=== PATIENT | female | born 1995 | race African-American/Black ===

== ENCOUNTER 2018-08-02 18:08 | Inpatient (IN) ==
--- NOTE | 2018-08-02 18:29 | ED ---
HPI General Chief complaint: Vaginal Bleeding Stated complaint: vaginal bleeding Time Seen by Provider: 08/02/18 18:19 History of Present Illness HPI Narrative: The patient was seen and examined in the presence of the nurse. This patient complains of vaginal bleeding. She has long history of very lengthy menstrual periods that go about 3 weeks. She is currently been bleeding about 3 weeks. She has history of anemia and blood transfusion, the last was about 6 months ago. This heavy and lengthy vaginal bleeding history has been going on for years but unfortunately she is never followed up with an outpatient [employer] ELECT[employer]PERATOR. She is not having pelvic pain or fever or syncope. She has some fatigue and lack of energy and generalized weakness. Symptom severity is moderate. No alleviating factors. Symptoms exacerbated by menorrhagia. She does not think she is Related Data Allergies Allergy/AdvReac Type Severity Reaction Status Date / Time No Known Allergies Allergy Uncoded 04/17/15 09:43 Review of Systems ROS: all other systems reviewed are negative [facility] Medical History Medical History Anemia (Acute) Surgical History Surgical History No history of previous surgery (Acute) Social History Social History Substance History: No History of Abuse Second Hand Smoke Exposure: No Smoking Status: Never smoker How Often Do You Have a Drink Containing Alcohol: Monthly or less Recent Travel in [facility] within the Last 8 Weeks: No Recent Out of Country Travel within the Last 8 Weeks: No Exam Narrative Exam Narrative: GENERAL: Well-nourished, well-developed patient in no apparent distress. SKIN: Focused skin assessment reveals no rash and nodules. Skin is Warm and dry. HEAD: Atraumatic. Normocephalic. EYES: Pupils equal and round. No scleral icterus. No injection or drainage. ENT: No nasal bleeding or discharge. Mucous membranes pink and moist. NECK: Trachea midline. No JVD. CARDIOVASCULAR: Regular rate and rhythm. No murmur appreciated. RESPIRATORY: No accessory muscle use. Clear to auscultation. Breath sounds equal bilaterally. GASTROINTESTINAL: Abdomen soft, non-tender, nondistended. Hepatic and splenic margins not palpable. MUSCULOSKELETAL: No obvious deformities. No clubbing. No cyanosis. No edema. NEUROLOGICAL: Awake and alert. No obvious cranial nerve deficits. Motor grossly within normal limits. Normal speech. PSYCHIATRIC: Appropriate mood and affect; insight and judgment normal. Course Initial Documented Vital Signs Temperature 98.4 F 08/02/18 18:11 Pulse Rate 73 08/02/18 18:11 Respiratory Rate 16 08/02/18 18:11 Blood Pressure 123/77 08/02/18 18:11 Pulse Oximetry 100 08/02/18 18:11 Last Documented Vital Signs Temperature 98.4 F 08/02/18 18:11 Pulse Rate 73 08/02/18 18:11 Respiratory Rate 16 08/02/18 18:11 Blood Pressure 123/77 08/02/18 18:11 Pulse Oximetry 100 08/02/18 18:11 Medical Decision Making MDM Narrative Medical decision making narrative: IV placed and labs sent. Urine is negative Hemoglobin is significantly low at 6.2. She is symptomatic anemia. She has fatigue and generalized weakness. She also has no T[employer] E[employer]ATOR follow-up and no health insurance and she is actively bleeding now. I have ordered her 2 units of packed red cells. I have discussed with the OB hospitalist who would only be a specialty development consultant and recommended I admit to the hospitalist. I have called Dr. Sanchez and she will admit. Medical Screen Exam Complete: Yes Emergency Medical Condition: Yes Differential Diagnosis Differential Diagnosis: Anemia, menorrhagia, ectopic Medical Records Medical records reviewed: Yes I reviewed the patient's medical records. Lab Data Lab results reviewed: Yes I reviewed the patient's lab results. Result diagrams: 08/02/18 18:43 POC Results POC Urine Results Negative Lab Results 08/02/18 08/02/18 Range/Units 18:43 19:44 WBC 6.0 (4.0-11.0) th/mm3 RBC 3.66 L (4.00-5.30) mil/mm3 Hgb 6.3 L* (11.6-15.3) gm/dL Hct 21.8 L (35.0-46.0) % MCV 59.5 L (80.0-100.0) fL MCH 17.2 L (27.0-34.0) pg MCHC 29.0 L (32.0-36.0) % RDW 19.9 H (11.6-17.2) % Plt Count 355 (150-450) th/mm3 MPV 8.3 (7.0-11.0) fL Prelim Diff (Auto) Slide review pending Neut % (Auto) 55.9 (16.0-70.0) % Lymph % (Auto) 30.8 (9.0-44.0) % [facility] % (Auto) 9.7 H (0.0-8.0) % Eos % (Auto) 2.8 (0.0-4.0) % Baso % (Auto) 0.8 (0.0-2.0) % Neut # (Auto) 3.3 (1.8-7.7) th/mm3 Lymph # (Auto) 1.8 (1.0-4.8) th/mm3 [facility] # (Auto) 0.6 (0.0-0.9) th/mm3 Eos # (Auto) 0.2 (0.0-0.4) th/mm3 Baso # (Auto) 0.0 (0.0-0.2) th/mm3 WBC Differential . Diff Scan Auto diff confirmed Differential Comment . Platelet Estimate Normal (Normal) Platelet Morphology Normal (Normal) Tear Drop Cells 1+ H (None) Ovalocytes 1+ H (None) MTS Gel Crossmatch See Detail Discharge Plan Discharge Disposition Patient Disposition: 30 Still Patient Physicians Team ED Provider: Cruz Chowdary Primary Care Provider: UNKNOWN, Discharge Interventions Interventions: Vital Signs Last Done: 08/02/18 18:11 Status ED Status: With Doctor
[2018-08-02 18:52] LABS: Baso % (Auto) 0.8 % (0.0-2.0); Eos # (Auto) 0.2 th/mm3 (0.0-0.4); Eos % (Auto) 2.8 % (0.0-4.0); Hematocrit 21.8 % (35.0-46.0); Lymph # (Auto) 1.8 th/mm3 (1.0-4.8); Lymph % (Auto) 30.8 % (9.0-44.0); Mean Corpuscular Hemoglobin 17.2 pg (27.0-34.0); Mean Corpuscular Volume 59.5 fL (80.0-100.0); Mean Platelet Volume 8.3 fL (7.0-11.0); Mono # (Auto) 0.6 th/mm3 (0.0-0.9); Mono % (Auto) 9.7 % (0.0-8.0); Neut # (Auto) 3.3 th/mm3 (1.8-7.7); Neut % (Auto) 55.9 % (16.0-70.0); Platelet Count 355 th/mm3 (150-450); Red Blood Count 3.66 mil/mm3 (4.00-5.30); Red Cell Distribution Width 19.9 % (11.6-17.2)
[2018-08-02 19:06] LABS: Hemoglobin 6.3 gm/dL (11.6-15.3)
[2018-08-02 19:43] LABS: Ovalocytes 1+; Platelet Estimate Normal (Normal); Platelet Morphology Normal (Normal)
[2018-08-02 19:44] LABS: Tear Drop Cells 1+
[2018-08-02] MEDS ORDERED: Sodium Chlor 0.9% Inj 250 ML IV.SIG SCH (20:00)
--- NOTE | 2018-08-02 21:11 | P.CONOB ---
History of Present Illness Primary Care Physician: UNKNOWN History of Present Illness: 23-year-old nulligravida female with menometrorrhagia. Patient reports a 3 week history of vaginal bleeding. She states that her periods are often 3 weeks in length and occur every 3-7 weeks. She is not currently using any type of contraception and reports that she is sexually active. She has been hospitalized on 2 separate occasions for a similar problem with anemia requiring transfusion. She has successfully been controlled with oral contraceptive therapy but has difficulty accessing ongoing prescriptions for this because she is uninsured. She is currently going to be admitted for treatment of anemia with transfusion therapy. - Inpatient Certification I certify that the inpatient services were ordered in accordance with Medicare regulations governing the order. This includes certification that hospital inpatient services are reasonable and necessary and in the case of services not specified as inpatient-only under 42 CFR 419.22(n), that they are appropriately provided as inpatient services in accordance to with the 2-midnight benchmark under 43 CFR 412.3(e) Review of Systems Constitutional: Reports fatigue, Reports headache(s), Reports lack of energy, Reports weakness Eyes: Denies blind spots, Denies blurry vision, Denies bulging eyes, Denies change in vision, Denies double vision, Denies discharge, Denies dry eyes, Denies floaters, Denies irritation, Denies itchy eyes, Denies loss of vision, Denies pain, Denies requires corrective lenses, Denies sensitivity to light, Denies other Ears, Nose, Mouth, and Throat: Denies bleeding gums Cardiovascular: Reports fast heart rate, Reports lightheadedness, Reports shortness of breath with activity, Denies chest pain, Denies fainting, Denies irregular heart rhythm Respiratory: Denies coughing up blood Gastrointestinal: Denies black, tarry stools, Denies bright, red blood in stools , Denies vomiting blood Genitourinary: Reports abnormal periods, Reports abnormal vaginal bleeding, Reports heavy periods, Denies blood in urine, Denies genital itching, Denies genital lesions Skin/Breast: Denies unusual bruising Hematologic/Lymphatic: Denies easy bleeding, Denies easy bruising PMFSH - History History Provided By: Patient - Medical / Surgical Hx Neg / Unobtainable Medical Problems Denied: Yes Surgical History: No Previous Surgery - Medical History Medical History: Medical History (Last Updated 09/03/18 @ 19:08 by Lindsey Velasco) Anemia - Surgical History Surgical History: Surgical History (Last Updated 08/02/18 @ 19:08 by Lindsey Velasco) No history of previous surgery - Tobacco History Second Hand Smoke Exposure: No Tobacco Use In Past 30 Days: No Smoking Status: Never smoker - Alcohol History How Often Do You Have a Drink Containing Alcohol: Monthly or less - Substance Use History Substance History: No History of Abuse - Travel History History of Recent Travel: No Recent Travel in the [place] Within the Last 8 Weeks: No Recent Travel Out of the Country Within the Last 8 Weeks: No - Immunization History Tetanus Immunization: Unsure Hx Influenza Vaccine This Season: No Medications and Allergies Active Medications: Active Medications Sodium Chloride (Ns Inj) 250 mls @ 15 mls/hr IV.SIG ONCE TRISTIAN Stop: 08/03/18 12:39 Allergies Allergy/AdvReac Type Severity Reaction Status Date / Time No Known Allergies Allergy Uncoded 04/17/15 09:43 Home Medications Medication Instructions Recorded Confirmed Type No Known Home Medications 08/02/18 08/02/18 History Exam Vital signs: Vital Signs 08/02/18 18:11 Temperature 98.4 F Pulse Rate 73 Respiratory Rate 16 Blood Pressure 123/77 Pulse Oximetry 100 Intake & Output 08/02/18 08/02/18 08/03/18 06:59 18:59 06:59 Weight 70 kg - Constitutional no acute distress - Routine Respiratory Exam Absent: accessory muscle use, decreased breath sounds, respiratory distress, wheezes, crackles - Routine Cardiovascular Exam Present: RRR - Routine Abdominal Exam Present: soft. Absent: tenderness, distended, organomegaly Results - Labs CBC & Chem 7: 08/02/18 18:43 Labs: Laboratory Results - last 24 hr 08/02/18 08/02/18 18:43 19:44 WBC 6.0 RBC 3.66 L Hgb 6.3 L* Hct 21.8 L MCV 59.5 L MCH 17.2 L MCHC 29.0 L RDW 19.9 H Plt Count 355 MPV 8.3 Prelim Diff (Auto) Slide review pending Neut % (Auto) 55.9 Lymph % (Auto) 30.8 [place] % (Auto) 9.7 H Eos % (Auto) 2.8 Baso % (Auto) 0.8 Neut # (Auto) 3.3 Lymph # (Auto) 1.8 [place] # (Auto) 0.6 Eos # (Auto) 0.2 Baso # (Auto) 0.0 WBC Differential . Diff Scan Auto diff confirmed Differential Comment . Platelet Estimate Normal Platelet Morphology Normal Tear Drop Cells 1+ H Ovalocytes 1+ H Blood Type B Positive Antibody Screen Negative MTS Gel Crossmatch See Detail Caprin VTE Risk Assessment Caprin VTE Risk Assessment: No/Low Risk (score <= 1) VTE Pharmacological Exception Reason: Hemorrhage Caprini Risk Assessment Model: Point Value = 1 Point Value = 2 Point Value = 3 Point Value = 5 Age 41-60 Minor surgery BMI > 25 kg/m2 Swollen legs Varicose veins or History of unexplained or recurrent spontaneous Oral contraceptives or hormone replacement Sepsis (< 1 month) Serious lung disease, including pneumonia (< 1 month) Abnormal pulmonary function Acute myocardial infarction Congestive heart failure (< 1 month) History of inflammatory bowel disease Medical patient at bed rest Age 61-74 Arthroscopic surgery Major open surgery (> 45 min) Laparoscopic surgery (> 45 min) Malignancy Confined to bed (> 72 hours) Immobilizing plaster cast Central venous access Age >= 75 History of VTE Family history of VTE Factor V Leiden Prothrombin [id number] Lupus anticoagulant Anticardiolipin antibodies Elevated serum homocysteine Heparin-induced thrombocytopenia Other congenital or acquired thrombophilia Stroke (< 1 month) Elective arthroplasty Hip, pelvis, or leg fracture Acute spinal cord injury (< 1 month) Prophylaxis Regimen: Total Risk Factor Score Risk Level Prophylaxis Regimen 0-1 Low Early ambulation 2 Moderate Order ONE of the following: *Sequential Compression Device (SCD) *Heparin 5000 units SQ BID 3-4 Higher Order ONE of the following medications: *Heparin 5000 units SQ TID *Enoxaparin/Lovenox 40 mg SQ daily (WT < 150 kg, CrCl > 30 mL/min) *Enoxaparin/Lovenox 30 mg SQ daily (WT < 150 kg, CrCl > 10-29 mL/min) *Enoxaparin/Lovenox 30 mg SQ BID (WT < 150 kg, CrCl > 30 mL/min) AND/OR *Sequential Compression Device (SCD) 5 or more Highest Order ONE of the following medications: *Heparin 5000 units SQ TID (Preferred with Epidurals) *Enoxaparin/Lovenox 40 mg SQ daily (WT < 150 kg, CrCl > 30 mL/min) *Enoxaparin/Lovenox 30 mg SQ daily (WT < 150 kg, CrCl > 10-29 mL/min) *Enoxaparin/Lovenox 30 mg SQ BID (WT < 150 kg, CrCl > 30 mL/min) AND *Sequential Compression Device (SCD) Assessment and Plan - Plan Assessment: 23-year-old female with recurrent menometrorrhagia with significant anemia Plan: The patient has had ultrasound performed during prior admissions which confirmed that she has a structurally normal uterus. I do not recommend that this be repeated. She has responded well in the past to combination oral contraceptive therapy and has no contraindications to this. I would recommend initiating combination oral contraceptive therapy with 1 pill every 12 hours until her bleeding stops followed by 1 pill daily. I discussed with the patient the importance of outpatient follow-up which can be obtained through the public health department if she continues to have no insurance.
[2018-08-02] MEDS ORDERED: Acetaminophen 325 MG Tablet PO PRN (21:25)
[2018-08-02] MEDS ORDERED: Bisacodyl 10 MG Supp RECTAL PRN (21:25)
[2018-08-02] MEDS ORDERED: Temazepam 15 MG Capsule PO PRN (21:25)
--- NOTE | 2018-08-02 21:31 | P.HP ---
History of Present Illness Service: [facility] Primary Care Physician: UNKNOWN History of Present Illness: 23-year-old female with no significant past medical history presents to the emergency department for evaluation of heavy menstrual bleeding with accompanying fatigue. The patient reports that her usual periods last for approximately 3 weeks, are heavy and associated with significant cramping. She reports menses occurring approximately every 3 weeks. For the past 3 weeks she has been dizzy and lightheaded especially with activity. She denies any chest pain or shortness of breath. No abdominal pain. No nausea/vomiting/diarrhea. No fever/chills. Inpatient Certification: I certify that the inpatient services were ordered in accordance with Medicare regulations governing the order. This includes certification that hospital inpatient services are reasonable and necessary and in the case of services not specified as inpatient-only under 42 CFR 419.22(n), that they are appropriately provided as inpatient services in accordance to with the 2-midnight benchmark under 43 CFR 412.3(e) Review of Systems All other systems reviewed negative except as stated in HPI [facility] - History History Provided By: Patient - Medical / Surgical Hx Neg / Unobtainable Medical Problems Denied: Yes - Medical History Medical History: Medical History (Last Updated 08/02/18 @ 19:08 by Lindsey Velasco) Anemia - Surgical History Surgical History: Surgical History (Last Updated 08/02/18 @ 19:08 by Lindsey Velasco) No history of previous surgery - Family History Family History: Family History (Last Updated 08/02/18 @ 21:29 by Asuncion Sanchez MD) Other Family history normal - Tobacco History Second Hand Smoke Exposure: No Tobacco Use In Past 30 Days: No Smoking Status: Never smoker - Alcohol History How Often Do You Have a Drink Containing Alcohol: Monthly or less - Substance Use History Substance History: No History of Abuse - Travel History History of Recent Travel: No Recent Travel in the [place] Within the Last 8 Weeks: No Recent Travel Out of the Country Within the Last 8 Weeks: No - Immunization History Tetanus Immunization: Unsure Hx Influenza Vaccine This Season: No Medications and Allergies Active Medications: Active Medications Sodium Chloride (Ns Inj) 250 mls @ 15 mls/hr IV.SIG ONCE TRISTIAN Stop: 08/03/18 12:39 Last Admin: 08/02/18 21:23 Dose: 15 mls/hr Allergies Allergy/AdvReac Type Severity Reaction Status Date / Time No Known Allergies Allergy Uncoded 04/17/15 09:43 Home Medications Medication Instructions Recorded Confirmed Type No Known Home Medications 08/02/18 08/02/18 History Exam Vital signs: Vital Signs 08/02/18 18:11 08/02/18 21:21 Temperature 98.4 F 98.1 F Pulse Rate 73 62 Respiratory Rate 16 15 Blood Pressure 123/77 109/58 L Pulse Oximetry 100 100 Intake & Output 08/02/18 08/02/18 08/03/18 06:59 18:59 06:59 Intake Total 0 / 0 Balance 0 / 0 Weight 70 kg Intake: Intake (Blood Product) Amt 0 / 0 Rbc As-3 Leukoreduced Unit 0 / 0 [id number] Narrative: Gen.: No acute distress Head: Normocephalic. Atraumatic. EENT: Pupils equal round and reactive to light. Nose without drainage. Airway intact. Throat without injection. Cardiovascular: Regular rate and rhythm. No murmurs, rubs or gallops. Respiratory: Lungs clear to auscultation bilaterally. No wheezes or rhonchi. Abdomen: Soft, nontender, nondistended. No peritoneal signs. Musculoskeletal: No gross deformities. No edema. Skin: No obvious rashes or erythema. Neuro: Sensory and motor grossly intact. Cranial nerves II through XII grossly intact. Results - Labs CBC & Chem 7: 08/02/18 18:43 Labs: Laboratory Results - last 24 hr 08/02/18 08/02/18 18:43 19:44 WBC 6.0 RBC 3.66 L Hgb 6.3 L* Hct 21.8 L MCV 59.5 L MCH 17.2 L MCHC 29.0 L RDW 19.9 H Plt Count 355 MPV 8.3 Prelim Diff (Auto) Slide review pending Neut % (Auto) 55.9 Lymph % (Auto) 30.8 [place] % (Auto) 9.7 H Eos % (Auto) 2.8 Baso % (Auto) 0.8 Neut # (Auto) 3.3 Lymph # (Auto) 1.8 [place] # (Auto) 0.6 Eos # (Auto) 0.2 Baso # (Auto) 0.0 WBC Differential . Diff Scan Auto diff confirmed Differential Comment . Platelet Estimate Normal Platelet Morphology Normal Tear Drop Cells 1+ H Ovalocytes 1+ H Blood Type B Positive Antibody Screen Negative MTS Gel Crossmatch See Detail Caprini VTE Risk Assessment Caprini VTE Risk Assessment: No/Low Risk (score <= 1) VTE Pharmacological Exception Reason: Hemorrhage Caprini Risk Assessment Model: Point Value = 1 Point Value = 2 Point Value = 3 Point Value = 5 Age 41-60 Minor surgery BMI > 25 kg/m2 Swollen legs Varicose veins or History of unexplained or recurrent spontaneous Oral contraceptives or hormone replacement Sepsis (< 1 month) Serious lung disease, including pneumonia (< 1 month) Abnormal pulmonary function Acute myocardial infarction Congestive heart failure (< 1 month) History of inflammatory bowel disease Medical patient at bed rest Age 61-74 Arthroscopic surgery Major open surgery (> 45 min) Laparoscopic surgery (> 45 min) Malignancy Confined to bed (> 72 hours) Immobilizing plaster cast Central venous access Age >= 75 History of VTE Family history of VTE Factor V Leiden Prothrombin [id number] Lupus anticoagulant Anticardiolipin antibodies Elevated serum homocysteine Heparin-induced thrombocytopenia Other congenital or acquired thrombophilia Stroke (< 1 month) Elective arthroplasty Hip, pelvis, or leg fracture Acute spinal cord injury (< 1 month) Prophylaxis Regimen: Total Risk Factor Score Risk Level Prophylaxis Regimen 0-1 Low Early ambulation 2 Moderate Order ONE of the following: *Sequential Compression Device (SCD) *Heparin 5000 units SQ BID 3-4 Higher Order ONE of the following medications: *Heparin 5000 units SQ TID *Enoxaparin/Lovenox 40 mg SQ daily (WT < 150 kg, CrCl > 30 mL/min) *Enoxaparin/Lovenox 30 mg SQ daily (WT < 150 kg, CrCl > 10-29 mL/min) *Enoxaparin/Lovenox 30 mg SQ BID (WT < 150 kg, CrCl > 30 mL/min) AND/OR *Sequential Compression Device (SCD) 5 or more Highest Order ONE of the following medications: *Heparin 5000 units SQ TID (Preferred with Epidurals) *Enoxaparin/Lovenox 40 mg SQ daily (WT < 150 kg, CrCl > 30 mL/min) *Enoxaparin/Lovenox 30 mg SQ daily (WT < 150 kg, CrCl > 10-29 mL/min) *Enoxaparin/Lovenox 30 mg SQ BID (WT < 150 kg, CrCl > 30 mL/min) AND *Sequential Compression Device (SCD) Assessment and Plan - Plan Assessment/plan: 1. Anemia Secondary to heavy menstrual flow LICENSED VOCATIONAL NURSE consulted, appreciate recommendations Transfuse 2 units packed red blood cells 2. Menorrhagia Plan as above FEN Regular diet
[2018-08-03 07:13] LABS: Baso # (Auto) 0.1 th/mm3 (0.0-0.2); Baso % (Auto) 0.7 % (0.0-2.0); Eos # (Auto) 0.2 th/mm3 (0.0-0.4); Eos % (Auto) 2.2 % (0.0-4.0); Hematocrit 31.2 % (35.0-46.0); Hemoglobin 9.4 gm/dL (11.6-15.3); Lymph # (Auto) 2.9 th/mm3 (1.0-4.8); Lymph % (Auto) 33.9 % (9.0-44.0); Mean Corpuscular Hemoglobin 20.3 pg (27.0-34.0); Mean Corpuscular Volume 67.8 fL (80.0-100.0); Mean Platelet Volume 8.8 fL (7.0-11.0); Mono # (Auto) 0.8 th/mm3 (0.0-0.9); Mono % (Auto) 9.4 % (0.0-8.0); Neut # (Auto) 4.7 th/mm3 (1.8-7.7); Neut % (Auto) 53.8 % (16.0-70.0); Platelet Count 309 th/mm3 (150-450); Red Blood Count 4.61 mil/mm3 (4.00-5.30); Red Cell Distribution Width 25.8 % (11.6-17.2); White Blood Count 8.6 th/mm3 (4.0-11.0)
[2018-08-03 07:36] LABS: Anion Gap 11 meq/L (5-15); Blood Urea Nitrogen 11 mg/dL (7-18); Calcium 8.4 mg/dL (8.5-10.1); Chloride 104 meq/L (98-107); Glomerular Filtration Rate Greater Than 89 mL/min (>89); Glucose,Random 78 mg/dL (74-106); Potassium 3.7 meq/L (3.5-5.1); Sodium 141 meq/L (136-145)
[2018-08-03 08:07] LABS: Acanthocytes Occ
[2018-08-03 08:08] LABS: Dimorphic RBC Present; Ovalocytes 1+; Platelet Estimate Normal (Normal)
--- NOTE | 2018-08-03 10:06 | P.DS ---
Date of admission: 08/02/18 20:09 Primary care physician: 08/03/2018 Attending physician on discharge: Cydney Garcia Anticipated date of discharge: 08/03/18 Brief History from admission: 23-year-old female with no significant past medical history presents to the emergency department for evaluation of heavy menstrual bleeding with accompanying fatigue. The patient reports that her usual periods last for approximately 3 weeks, are heavy and associated with significant cramping. She reports menses occurring approximately every 3 weeks. For the past 3 weeks she has been dizzy and lightheaded especially with activity. She denies any chest pain or shortness of breath. No abdominal pain. No nausea/vomiting/diarrhea. No fever/chills. Patient update on day of discharge: Patient stated that she feels a lot better. She denies any chest pain, shortness of breathing, palpitation, lightheadedness dizziness. Patient very anxious to go home. She has no complaints. Her sister is at the bedside during the interview. DS: Diagnosis - Discharge Diagnosis (1) Symptomatic anemia Status: Acute (2) Menorrhagia Status: Acute DS: Summary Hospital Course: Patient had a relatively uncomplicated hospital course. She was admitted for symptomatic anemia secondary to menorrhagia. Patient was transfused with 2 units of packed red blood cells and responded appropriately. She was asymptomatic after treatment. Program Professional was consulted recommended control combination 1 tablet p.o. twice daily until bleeding resolves then 1 daily since patient tolerated this in the past.. Patient also had a pelvic ultrasound done which showed normal uterus. Per boil off worker they would not recommend repeating ultrasound again. Patient was given a written prescription for Sprintec and stated that most likely this is $4 at [facility] since she is self paid. Patient was educated on the risks, benefits, side effects of Sprintec. She stated that she understood. Patient was discharged in stable condition. - Time Spent with Patient Total time spent providing and/or coordinating discharge services: 25 minutes Less than 30 minutes - Quality: VTE Deep Vein Thrombosis/Pulmonary Embolism Present on Admission: No Exam Vital signs: Vital Signs 08/02/18 18:11 08/02/18 21:21 08/02/18 21:37 Temperature 98.4 F 98.1 F 98.8 F Pulse Rate 73 62 79 Respiratory Rate 16 15 17 Blood Pressure 123/77 109/58 L 117/68 Pulse Oximetry 100 100 100 08/02/18 23:19 08/03/18 00:45 08/03/18 01:38 Temperature 98.1 F 98.3 F 98.1 F Pulse Rate 77 73 69 Respiratory Rate 16 17 17 Blood Pressure 114/61 115/63 119/65 Pulse Oximetry 100 100 100 08/03/18 01:58 08/03/18 04:00 08/03/18 04:18 Temperature 98.2 F 97.6 F 97.6 F Pulse Rate 66 68 68 Respiratory Rate 18 16 16 Blood Pressure 115/61 117/71 117/71 Pulse Oximetry 100 100 100 08/03/18 06:04 Temperature Pulse Rate Respiratory Rate 18 Blood Pressure Pulse Oximetry Intake & Output 08/02/18 08/03/18 08/03/18 18:59 06:59 18:59 Intake Total 1050 / 1050 480 / 480 Balance 1050 / 1050 480 / 480 Weight 70 kg 70 kg Intake: IV 250 / 250 NS Inj 250 ML @ 15 mls/hr IV. 250 / 250 SIG ONCE TRISTIAN Rx#:[id number] Oral 480 / 480 Intake (Blood Product) Amt 800 / 800 Rbc As-3 Leukoreduced Unit 400 / 400 [id number] Rbc As-3 Leukoreduced Unit 400 / 400 [id number] Other: # Voids 2 Date of Last Bowel Movement 08/02/18 Weight On Admission 70 kg - Constitutional no acute distress - Routine HEENT Exam Head: Present: normocephalic ENT: Present: mucous membranes moist - Routine Neck Exam Present: full ROM, JVD - Routine Respiratory Exam Present: CTA bilaterally - Routine Cardiovascular Exam Present: RRR, S1, S2 Comments: No rubs murmurs or gallops. - Routine Abdominal Exam Present: soft, normoactive bowel sounds - Routine Neurological Exam Present: alert, oriented X3 Results Procedures completed during hospitalization: Pelvic ultrasound Labs on day of discharge: Labs from last 24 hours 08/03/18 08/03/18 08/02/18 04:36 04:36 19:44 WBC 8.6 RBC 4.61 Hgb 9.4 L D Hct 31.2 L MCV 67.8 L D MCH 20.3 L MCHC 30.0 L RDW 25.8 H D Plt Count 309 MPV 8.8 Prelim Diff (Auto) Slide review pending Neut % (Auto) 53.8 Lymph % (Auto) 33.9 [place] % (Auto) 9.4 H Eos % (Auto) 2.2 Baso % (Auto) 0.7 Neut # (Auto) 4.7 Lymph # (Auto) 2.9 [place] # (Auto) 0.8 Eos # (Auto) 0.2 Baso # (Auto) 0.1 WBC Differential . Diff Scan Auto diff confirmed Differential Comment . Platelet Estimate Normal Platelet Morphology Enlarged H Dimorphic RBCs Present H Tear Drop Cells Ovalocytes 1+ H Acanthocytes (Spur) Occ H Sodium 141 Potassium 3.7 Chloride 104 Carbon Dioxide 26.0 Anion Gap 11 BUN 11 Creatinine 0.66 Estimated GFR Greater than 89 Random Glucose 78 Calcium 8.4 L Blood Type B Positive Antibody Screen Negative MTS Gel Crossmatch See Detail 08/02/18 18:43 WBC 6.0 RBC 3.66 L Hgb 6.3 L* Hct 21.8 L MCV 59.5 L MCH 17.2 L MCHC 29.0 L RDW 19.9 H Plt Count 355 MPV 8.3 Prelim Diff (Auto) Slide review pending Neut % (Auto) 55.9 Lymph % (Auto) 30.8 [place] % (Auto) 9.7 H Eos % (Auto) 2.8 Baso % (Auto) 0.8 Neut # (Auto) 3.3 Lymph # (Auto) 1.8 [place] # (Auto) 0.6 Eos # (Auto) 0.2 Baso # (Auto) 0.0 WBC Differential . Diff Scan Auto diff confirmed Differential Comment . Platelet Estimate Normal Platelet Morphology Normal Dimorphic RBCs Tear Drop Cells 1+ H Ovalocytes 1+ H Acanthocytes (Spur) Sodium Potassium Chloride Carbon Dioxide Anion Gap BUN Creatinine Estimated GFR Random Glucose Calcium Blood Type Antibody Screen MTS Gel Crossmatch Discharge Plan - Discharge Disposition Patient Disposition: Discharge Home - Discharge Condition Condition: Good - Discharge Order Discharge Orders: Discharge Order (Routine); Ordered 08/03/18 Ordered By: Cydney Garcia - Physicians Team Primary Care Provider: UNKNOWN, Attending Provider: Cydney Garcia Other Providers: Jack Huang MD
[2018-08-03 10:08] VITALS: BP 109/64; PULSE 65; RESP 16; TEMP 97.9; O2SAT 16
== END 2018-08-03 11:16 | disposition home or self-care (01) ==
LOC: NEPD 18:08 → NEDA 20:09 → N06 22:39
PROVIDERS: ADMIT Family Medicine; ATTEND Family Medicine